=== PATIENT | female | born 1945 | race Caucasian/White ===

== ENCOUNTER 2016-08-27 07:37 | Day surgery (SDC) | payer MEDICARE, OTHER ==
--- NOTE | ~2016-08-27 | OP ---
Record Of Operation [facility] [address] [place]. 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 POSTOPERATIVE DIAGNOSIS: Left L3-4, L4-5, and L5-S1 disk herniation with lumbar radiculopathy. PROCEDURES: Left-sided L3-4, L4-5, and L5-S1 microdiscectomy, use of operative microscope, minimal access spine technology, and intraoperative O-arm CT scan with computer navigation. SURGEON: Christofer Savage DO. ANESTHESIA: General. ESTIMATED BLOOD LOSS: 30 mL. COMPLICATIONS: None. INDICATIONS: The patient is a 71-year-old female with intractable left leg pain, failed conservative treatment. After discussion of the risks and benefits, elected to proceed with the surgery. DESCRIPTION OF PROCEDURE: I identified the patient in the holding area. Consent was obtained. Went to the operating room. Underwent general anesthesia with endotracheal intubation. Prepped and draped in the usual sterile fashion. Operative safety pause was performed, then we proceeded with the surgery. O-arm registration frame was placed in the iliac crest. O-arm was brought in for intraoperative CT scan. Computer registration materials were verified. Under computer guidance, a left longitudinal incision was made from L3-S1 taken down through the fascial layer. Tube dilators were used to minimally invasively dissect down to the left L3-4 interspace. Operative microscope was brought in. A shu was used to perform a laminotomy. Marcella performed a foraminotomy. Disk was incised and free disk material was removed with the pituitary. The L3 and L4 nerve roots were free of compression. This was repeated at L4-5 and L5-S1. Irrigation was performed. Hemostasis was achieved. 40 mg of Depo-Medrol was injected over the nerve roots. Layered closure was performed. Sterile dressings were applied. The patient was awoken and extubated, and taken to the recovery room in stable condition. FINDINGS: L3-S1 disk herniation with stenosis. GWENDOLYN/JANNETTE Christofer Kearney Record Of Operation [address] [place]. [address] NAME: GABBY COSME : 47 STATUS : REG [facility] PAT#: [id number] AGE: 71 ADM/REG DATE : 08/27/16 MR#: [id number] REPORT SERV DATE: 08/27/16 DICTATED BY: CHRISTOFER SAVAGE DATE: 08/27/16 REPORT STATUS : Draft TRANSCRIBED BY: MODL DATE: 08/27/16 DO Janette / [id number] CC: DO Tiffany Snyder M.D.
[~2016-08-27 07:37] MED LIST: ASAB PO; CAT1 PO; LIPITOR40 PO; LOTE20 PO; LOTE40 PO; MAX25 PO; NEUR300 PO; NORV10 PO; PCET PO; REQUIP2 PO; REQUIP3 PO; ROBINUL FORT2 MG PO; SINGULAIR1 PO; SYMBICORT 160/41 INH INH; ULTRAM ER100 MG PO; ULTRAM50 PO; V5 PO; VICTOZA18 MG/3 ML SC; ZOL100 PO
== END 2016-08-27 16:15 | disposition home or self-care (01) ==
LOC: SDC 07:37
PROVIDERS: Orthopaedic Surgery
PROC: 01NB0ZZ Release Lumbar Nerve, Open Approach (ICD-10-PCS; principal; 2016-08-27 09:15)
DX: M51.16 Intervertebral disc disorders with radiculopathy, lumbar region (principal); M51.17 Intervertebral disc disorders with radiculopathy, lumbosacral region; I10 Essential (primary) hypertension; J45.909 Unspecified asthma, uncomplicated; M19.90 Unspecified osteoarthritis, unspecified site; G47.33 Obstructive sleep apnea (adult) (pediatric); Z98.1 Arthrodesis status; Z96.653 Presence of artificial knee joint, bilateral; Z90.710 Acquired absence of both cervix and uterus; Z88.8 Allergy status to other drugs, medicaments and biological substances; Z91.048 Other nonmedicinal substance allergy status; Z79.899 Other long term (current) drug therapy; Z91.040 Latex allergy status; Z98.890 Other specified postprocedural states
CPT/HCPCS: 82962; 88304; 88311; 93005; A9270-GY; J0690; J1030; J2250; J2405; J2710; J3010